=== PATIENT | male | born 1945 | race Caucasian/White ===

== ENCOUNTER 2017-07-12 06:10 | Observation (INO) ==
[2017-07-12] MEDS ORDERED: Lidocaine -MPF 1% 2 ML VIAL ID ONE (06:32)
[2017-07-12] MEDS ORDERED: CeFAZolin Syr 2,000MG/20 ML 2,000 MG/20 ML SYRINGE IVPB ONE (06:32)
[2017-07-12] MEDS ORDERED: Lidocaine -MPF 4% 5 ML AMPUL ONE (06:35)
[2017-07-12] MEDS ORDERED: *HR* Midazolam HCl 2 MG/2 ML VIAL ONE ×2 (06:43→10:14)
[2017-07-12] MEDS ORDERED: *HR* FentaNYL (PF) 100 MCG/2 ML VIAL ONE ×2 (06:43→09:16)
[2017-07-12] MEDS ORDERED: *HR* Propofol 200 MG/20 ML VIAL IVP ONE ×2 (06:44)
[2017-07-12] MEDS ORDERED: Ringers Solution, Lactated 1,000 ML IVC SCH (06:45)
--- NOTE | 2017-07-12 06:48 | Anesthesia Evaluation PreOp ---
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) Anesthesia History: No Prior Anesthetic Complications, Past Anesthesia ( colectomy, ear sx, hernia, multiple vascular, RND) Alcohol Use: none Drug use: none Medications and Allergies Allopurinol [Zyloprim 100 MG] 100 mg PO DAILY 09/19/15 [History] Aspirin [Adult Low Dose Aspirin EC] 81 mg PO DAILY 09/19/15 [History] Blood Sugar Diagnostic [Test Strips] 1 each MC AD 09/19/15 [History] Calcium Carbonate/Vitamin D3 [Calcium 1,000 + D3 Caplet] 1 each PO DAILY [History] Magnesium 250 mg PO DAILY 09/19/15 [History] Metoprolol [Lopressor] 37.5 mg PO BID 09/19/15 [History] Multivitamin [Multivitamins] 1 each PO DAILY 09/19/15 [History] Omeprazole [PriLOSEC] 20 mg PO DAILY 09/19/15 [History] Simvastatin [Zocor] 40 mg PO DAILY 09/19/15 [History] Losartan/HCTZ [Hyzaar 50-12.5 Tablet] 1 each PO DAILY 03/24/16 [History] Levothyroxine 03/23/17 [History] 3 Allergy/AdvReac Type Severity Reaction Status Date / Time No Known Allergies Allergy Verified 03/23/17 08:57 - Meds/Allergy Pre-op Review Medications Reviewed: Yes Allergies Reviewed: Yes Beta Blockers on Current Med List: Yes If Beta Blockers taken, Date/Time (Last Dose taken): today 514 Anesthesia Results - Labs Laboratory Tests 06/18/14 06/30/17 06/30/17 11:09 11:44 11:44 Hgb 13.4 Hct 40.3 Plt Count 145 PT 10.9 INR 1.0 PTT 28.1 Sodium 139 Potassium 3.9 BUN 20 Creatinine 1.06 - Imaging Additional studies: stress: mpression: Technically challenging study - bowel wall uptake obscures interpretation of the inferior wall. Cannot exclude reversible ischemia in the apex (see Findings below). Pharmacologic stress ECG is negative for ischemia at level of heart rate achieved. Gated EF = 63%. Mild borderline TID is present with stress. Findings communicated to ordering provider. Anesthesia Exam Selected Entries 07/12/17 06:37 Temperature 97.9 F Pulse Rate 54 Respiratory Rate 18 Blood Pressure 116/73 O2 Sat by Pulse Oximetry 96 Weight: 80kg NPO (# of Hours): 8 Pain Scale: 0 Pain Scale Used: Numeric (1 - 10) - HEENT Pupil (Motor): EOMI Mallampati: II Teeth: Missing Oral Opening: Greater than 3 (good ROM of neck, no tongue fixation noted) - CURRICULUM COUNSELOR LOC: Oriented CURRICULUM COUNSELOR Motor: Normal RUE, Normal LUE, Normal RLE, Normal LLE, Normal Face CURRICULUM COUNSELOR Sensory: Normal: RUE, LUE, RLE, LLE, Face - Cardiac Rhythm: Regular Murmur: None - Pulmonary Breath Sounds: bilateral Clear Respiratory Effort: Symmetrical Anesthesia Assess/Plan ASA Score: 4 Modified Rico Scale for Level of Consciousness: Cooperative, oriented, and tranquil Anesthetic Plan: General Monitoring Plan: Standard Monitors, A-Line Recovery Plan: PACU (Discussed risks of GA and need for a-line. Agrees to proceed and agrees to blood products if needed. Discussed stress test findings with Dr Rivera yesterday. These were also discussed with Dr Kirkpatrick and we feel he is appropriate candidate from cardiac standpoint)
[2017-07-12] MEDS ORDERED: Lidocaine -MPF 2% 2 ML VIAL ONE ×2 (06:49→07:23)
[2017-07-12] MEDS ORDERED: *HR* Phenylephrine 10 MG/ML VIAL ONE (06:52)
[2017-07-12] MEDS ORDERED: *HR* Succinylcholine 200 MG/10 ML VIAL IVP ONE (06:54)
[2017-07-12] MEDS ORDERED: *HR* Rocuronium Bromide 50 MG/5 ML VIAL ONE (06:54)
[2017-07-12] MEDS ORDERED: Dexamethasone 4 MG/ML VIAL ONE (06:59)
[2017-07-12] MEDS ORDERED: Ondansetron 4 MG/2 ML VIAL ONE (06:59)
[2017-07-12] MEDS ORDERED: Lidocaine -MPF 1% 2 ML VIAL ONE (07:01)
[2017-07-12] MEDS ORDERED: Heparin 1,000 UNITS/500 mL NS 1,500 ML ONE (07:16)
[2017-07-12] MEDS ORDERED: Heparin 1,000 UNITS/500 mL NS 500 ML ONE (07:20)
[2017-07-12] MEDS ORDERED: *HR* Remifentanil 2 MG VIAL IVP ONE (07:28)
[2017-07-12] MEDS ORDERED: EPHEDrine 50 MG/ML VIAL ONE ×2 (07:32→08:55)
--- NOTE | 2017-07-12 07:33 | History & Physical Report ---
Date of Encounter: 07/12/17 Time of Encounter: 07:25 24 Hour HP Update - Instructions Instructions: If the History and Physical is less than 30 days old and was completed prior to A.M. admission and or procedure and has NOT been updated on calendar day of procedure please complete this update prior to performing procedure. - Update Changes in examination, assessment, or condition: No Changes in Medication: No Preop tests/diagnostics Reviewed: Yes Pre-Op MRSA Screen: Negative Surgery Remains Indicated: Yes Consent for Planned Operative Procedure(s) Verified: Yes - Pre-Operative Checklist Preoperative Checklist Indicated: Yes Prophylactic Antibiotic Ordered: Yes Home Medications Include Beta Ramos: Yes Beta Ramos Taken Today (Day of Surgery): Yes Beta Ramos Taken Yesterday (Day Prior to Surgery): Yes Is VTE Prophylaxis Indicated?: Yes
[2017-07-12] MEDS ORDERED: Esmolol 100 MG/10 ML VIAL IVP ONE (07:34)
[2017-07-12] MEDS ORDERED: NiCARdipine 2.5 MG/10 ML Syringe IVPB ONE (07:42)
[2017-07-12] MEDS ORDERED: Lacri-Lube 3.5 GM TUBE ONE (08:46)
[2017-07-12] MEDS ORDERED: *HR* Heparin 5,000 UNIT/ML VIAL ONE (09:43)
[2017-07-12] MEDS ORDERED: *HR* Labetalol 20 MG/4 ML SYRINGE IVP PRN (10:17)
[2017-07-12] MEDS ORDERED: Ondansetron 4 MG/2 ML VIAL IVP PRN ×2 (10:17→12:05)
[2017-07-12] MEDS ORDERED: *HR* HYDROmorphone (PF) 1 MG/ML SYRINGE IVP PRN (10:17)
--- NOTE | 2017-07-12 11:04 | Operative Note ---
Date of procedure: 07/12/17 Pre-op diagnosis: AAA Post-op diagnosis: same Procedure: EVAR with [employer] AUI(aorto uni-iliac) device Open femoral exposure --unilateral Catheter and sheath placement into aorta nonselective Radiographic supervision and interpretation for endovascular abdominal aortic aneurysm repair Complications: none Anesthesia: HAKEEMA Surgeon: Tank Rivera Estimated blood loss (cc): 150 Specimen: none Condition: stable Disposition: PACU Procedure in Detail: History Chuck Lopez is a 72-year-old white male who has a long history of vascular occlusive disease. He is status post previous thoracobifemoral bypass grafting as well as right common iliac artery stent angioplasties and femoral-femoral bypass graftings. The patient had been identified as having an infrarenal abdominal aortic aneurysm. This had been increasing in size. It was now noted to be greater than 5 cm. The patient was referred to the vascular surgery clinic by Dr. Berrios. The patient's femoral-femoral bypass graft remained patent as does the iliac stent angioplasty. Due to the size of the aneurysm it was opted to proceed with surgery at this time and the patient now comes for endovascular repair of the aneurysm. 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 Procedure After informed consent was obtained the patient was taken from the holding area to the operating room. General endotracheal anesthesia was established under arterial line pressure monitoring. The abdomen and groin and upper thighs were sterilely prepped and draped. A timeout protocol was observed. An incision was then made in the right groin over the area of the previous scar from his previous femoral-femoral bypass grafting. Dissection was carried down through the scar tissue to identify the graft as well as the [place] circulation. The proximal common femoral artery was found to be soft and normal in size. He had an excellent pulse. Controls obtained of the femoral femoral graft and the distal common femoral artery but it was opted to proceed with puncture and use of the proximal common femoral artery for the endovascular intervention. An 18-gauge needle was used to puncture the proximal common femoral artery in a retrograde orientation. A guidewire was then inserted. An 8 Armenian sheath was then placed over the wire. The dilator was removed and the sheath was aspirated and flushed. A guidewire was then advanced into the suprarenal aorta and then marked at the proximal descending thoracic aorta. A pigtail catheter was then placed and an abdominal aortogram was obtained. This was performed so that I could verify the location of the renal arteries as well as the right iliac bifurcation. Measurements were then made. It should be noted the patient was heparinized with 5000 units of heparin. An aorto uni-iliac device was selected. This device measured 32 x 14 x 102 mm. It was deployed in the immediate infrarenal location with the suprarenal stents. The carrier device was removed and the 11 Armenian sheath was then placed. The pigtail catheter was reinserted and an angiogram obtained again to measure the length of the extension component needed to complete the repair. This angiogram revealed that an appropriate selection would be a 16 x 13 x 93 mm. This was then placed so that appropriate overlap of the stent graft as well as the right iliac bifurcation. After this was performed the 11 Armenian sheath was reinserted and then the Reliant balloon was placed. This balloon was then used to gently dilate the stent graft to its maximum configuration and to secure the landing zones proximally and distally and at the graft overlap areas. The marker pigtail catheter was then reinserted and placed in a supra renal location. A completion aortogram was then performed. This demonstrated preservation of the renal arteries with no findings of endovascular leak. The right iliac bifurcation was also preserved. No signs of endovascular leak distally. Excellent flow was noted through the stent graft. This done all the devices were removed. The femoral puncture site was closed with 6-0 Prolene suture. After appropriate backbleeding and flushing the clamps were removed and excellent pulsatile flow wasn't achieved into the right lower extremity and through the right to left femoral-femoral bypass graft. There were no intraoperative complications. The patient tolerated the procedure well. The patient was extubated in the operating room and taken to the recovery room in stable condition.
--- NOTE | 2017-07-12 11:42 | Anesthesia Evaluation Post Op ---
Date of Encounter: 07/12/17 Time of Encounter: 11:40 - Vital Signs Vital Signs: Vital Signs/O2 Sat/Glucose, Most Current Temp Pulse Resp BP Pulse Ox 07/12/17 11:21 68 16 141/72 100 07/12/17 11:11 97.2 F L 70 16 141/69 94 - Lungs Lungs: Clear Ascult./Percussion - Airway Airway: Non-obstructed - Cardiovascular Regular Rate - Mental Status Mental Status: Alert & Oriented, Answers Appropriately - Pain Pain Scale: 3 - Nausea Vomiting Nausea Vomiting: Not Present - Hydration Hydration: NPO - Discharge PostOp Status: Transfer Patient to floor (patient examined in PACU, VSS, mild pain, no nausea, sierra present and draining. Patient ready for transfer to floor )
[2017-07-12] MEDS ORDERED: Acetaminophen 325 MG TABLET PO PRN (12:05)
[2017-07-12] MEDS ORDERED: Naloxone 0.4 MG/ML INJ IVP PRN (12:05)
[2017-07-12] MEDS ORDERED: *HR* Morphine 2 MG/ML SYRINGE IVP PRN ×2 (12:05)
[2017-07-12] MEDS ORDERED: *HR* HYDROcodone/Acet 5/325 mg TABLET PO PRN (12:05)
[2017-07-12] MEDS: CeFAZolin Syringe 2,000MG/20 ML SYR IVPB SCH ×2 (18:15→23:34)
[2017-07-12] MEDS ORDERED: CeFAZolin Syringe 2,000MG/20 ML SYR IVPB SCH (18:15)
[2017-07-12] MEDS ORDERED: CALCIUM CARBONATE PO SCH (21:00)
[2017-07-12] MEDS ORDERED: Aspirin Enteric Coated 81 MG Tablet PO SCH (21:00)
[2017-07-12] MEDS ORDERED: VITAMIN D3 PO SCH (21:00)
[2017-07-13 04:58] LABS: Eosinophils % 0.2 %; Mean Corpuscular Volume 98.5 fL (83.0-100.0); Mean Platelet Volume 9.8 fL (9.4-12.4)
[2017-07-13 05:00] LABS: Basophils % 0.2 %; Hematocrit 32.8 % (37.5-50.1); Hemoglobin 11.1 g/dL (12.9-16.9); Immature Granulocytes % 0.2 % (0-4); Immature Platelets 3.5 % (1.1-6.1); Lymphocytes % 9.7 %; Mean Corpuscular HGB Conc 33.8 g/dL (31.6-35.5); Mean Corpuscular Hemoglobin 33.3 pg (28.0-33.3); Monocytes # 0.8 K/mcL (0.0-1.3); Monocytes % 7.7 %; Platelet Count 122 K/mcL (140-400); Red Blood Count 3.33 M/mcL (4.19-5.50); Red Cell Distribution Width 12.9 % (11.5-14.5)
[2017-07-13 05:11] LABS: BUN/Creatinine Ratio 18 (6-26); Blood Urea Nitrogen 17 mg/dL (8-26); Calcium 8.7 mg/dL (8.6-10.8); Carbon Dioxide 28 mEq/L (19-29); Chloride 105 mEq/L (98-109); Glucose 115 mg/dL (70-99); Osmolality,Calculated 292 (280-300); Potassium 3.8 mEq/L (3.5-4.5); Sodium 140 mEq/L (136-145); eGFR For African Americans > 60 (> 60); eGFR For Non-African Americans > 60 (> 60)
[2017-07-13] MEDS ORDERED: Levothyroxine 25 MCG TABLET PO SCH (06:30)
[2017-07-13] MEDS ORDERED: MAGNESIUM PO SCH (09:00)
[2017-07-13] MEDS ORDERED: Losartan/HCTZ 50-12.5 TABLET PO SCH (09:00)
[2017-07-13] MEDS ORDERED: Multivit/Ca/Min/Fe/FA 1 TAB TABLET PO SCH (09:00)
--- NOTE | 2017-07-13 10:04 | Discharge Summary ---
Date of Encounter: 07/13/17 Time of Encounter: 10:02 - Discharge Diagnosis (1) AAA (abdominal aortic aneurysm) Priority: Primary Status: Chronic Comments: Patient has known abdominal aortic aneurysm. This is been followed with imaging. It demonstrated increase in size. Patient was admitted for elective surgical repair. Qualifiers: Presence of rupture: without rupture Qualified Code(s): I71.4 - Abdominal aortic aneurysm, without rupture (2) PAD (peripheral artery disease) Priority: Secondary Status: Chronic Comments: Patient has long history of peripheral vascular occlusive disease. He has a known right common iliac artery stent angioplasty and a left common iliac artery chronic occlusion. He is status post a right to left femoral-femoral bypass graft. - Discharge Medications Home Medications: Allopurinol [Zyloprim 100 MG] 100 mg PO HS 09/19/15 [History] Aspirin [Adult Low Dose Aspirin EC] 81 mg PO HS 09/19/15 [History] Calcium Carbonate/Vitamin D3 [Calcium 1,000 + D3 Caplet] 1 each PO HS 09/19/15 [ History] Magnesium 250 mg PO DAILY 09/19/15 [History] Metoprolol [Lopressor] 37.5 mg PO BID 09/19/15 [History] Multivitamin [Multivitamins] 1 each PO DAILY 09/19/15 [History] Omeprazole [PriLOSEC] 20 mg PO HS 09/19/15 [History] Simvastatin [Zocor] 20 mg PO HS 09/19/15 [History] Losartan/HCTZ [Hyzaar 50-12.5 Tablet] 1 each PO DAILY 03/24/16 [History] Levothyroxine [Synthroid] 25 mcg PO 0630 03/23/17 [History] Tamsulosin [Flomax] 0.4 mg PO HS 07/12/17 [History] Allergies/Adverse Reactions: 3 Allergy/AdvReac Type Severity Reaction Status Date / Time No Known Allergies Allergy Verified 07/12/17 07:01 Date of admission: 07/12/17 11:51 Primary care physician: Randy Massey MD Consults: None Procedure(s) Performed: Endovascular repair of abdominal aortic aneurysm using aorto unilateral iliac device Discharging clinician: Tank Rivera Anticipated date of discharge: 07/13/17 - Patient Status Disposition: Home, Self-Care Condition: Good Functional capacity at discharge: independent ambulation Overall status at discharge: patient is progressing back to baseline - Discharge Instructions Follow Up With: Randy Massey MD [Primary Care Provider] - 07/21/17 9:45 am Tank Rivera MD [Partnered Physician] - 07/25/17 11:30 am Additional Instructions: No lifting greater than 10 pounds No automobile driving for 2 weeks Resume usual home medications Keep right groin incision dry for total of 5 days following surgery Patient is encouraged to ambulate both inside and outside after discharge Patient is to use incentive spirometer 10 times an hour while awake for the next 2 weeks. - Diet and Activity Activity: increase activity as tolerated Diet: advance to your usual diet - Hospital Course Hospital course: Mr. Lopez is a 72 year old male With an abdominal aortic aneurysm and previous surgery for PAD. He underwent a cutdown of the right groin and exposure and then performance of a endovascular repair of an abdominal aortic aneurysm using an aorto uni-iliac device with a 2 component implantation. The patient had no periprocedural complications. He tolerated the procedure and anesthesia well. He was felt fit for discharge on postoperative day #1. The patient was given information regards to diet and wound care and activities following surgery. - Time Spent with Patient Total time spent providing and/or coordinating discharge services: Exam Vital Signs, Last 4 Hours Temp Pulse Resp BP Pulse Ox 07/13/17 09:12 97.9 F 07/13/17 08:00 79 07/13/17 07:00 70 14 151/72 96 General: Present: Conversant, No Apparent Distress HEENT: Present: Atraumatic Neck: Absent: JVD Cardiac: Present: Reg Rate and Rhythm, Normal S1 and S2 Lungs: Present: Normal Breath Sounds Neuro: Present: Alert and responsive, No focal deficits noted, Cranial nerves grossly intact Abdomen: Present: Soft, Non-tender. Absent: Masses Vascular: Present: Normal capillary refill, Surgical incisions (Right groin incision is clean and dry). Absent: Clubbing, Cyanosis - VTE Documentation of Mechanical Device: Intermittent pneumatic compression device
[2017-07-13] MEDS ORDERED: ceFAZolin 2,000 MG in D5% in Water 100 ML IVPB SCH (10:23)
[2017-07-13 11:32] VITALS: BP 101/61
== END 2017-07-13 11:40 | disposition home or self-care (01) | DRG 269 ==
LOC: SAMDAY 06:10 → INTOOBSV 11:51 → ICNU 11:51
PROVIDERS: ADMIT Surgery Vascular Surgery; ATTEND Surgery Vascular Surgery